=== PATIENT | male | born 1990 | race Caucasian/White ===

== ENCOUNTER 2018-07-30 15:23 | Emergency (ER) | payer OTHER ==
--- NOTE | 2018-07-30 15:37 | ER Report ---
History and Physical Time Seen By MD: 15:37 HPI/ROS CHIEF COMPLAINT: Right shoulder pain HISTORY OF PRESENT ILLNESS: This is a 28-year-old male who presents to the emergency department for right shoulder pain. 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 Patient has a mild deformity of the right shoulder, I am concerned about an A/C separation. No fevers, chills. No chest pain or shortness of breath. No C-spine tenderness. REVIEW OF SYSTEMS: Respiratory: No cough, no dyspnea. Cardiovascular: No chest pain, no palpitations. Gastrointestinal: No vomiting, no abdominal pain. Musculoskeletal: As above. Allergies: Coded Allergies: cinnamon (Verified Allergy, Severe, HIVES, 07/30/18) IN MOUTH Home Meds Active Scripts Hydrocodone Bit/Acetaminophen (HYDROCODON-ACETAMINOPHEN 5-325) 1 Each Tablet, 1 EACH PO Q4-6H PRN for PAIN, #8 TAB Prov:PABLO ENRIQUE CONTINUOUS IMPROVEMENT CONSULTANT- 07/30/18 Past Medical/Surgical History The patient has a past medical and surgical history of some teeth extraction, broken fingers. Reviewed Nurses Notes: Yes Constitutional Vital Sign - Last 24 Hours 07/30/18 07/30/18 07/30/18 07/30/18 15:29 15:37 15:53 16:00 Temp 98.7 Pulse 94 87 Resp 14 B/P (MAP) 124/76 (92) 124/76 120/73 (89) Pulse Ox 90 94 O2 Delivery Room Air Room Air 07/30/18 07/30/18 07/30/18 07/30/18 16:23 16:30 16:35 17:00 Pulse 88 90 B/P (MAP) 124/79 (94) 118/69 (85) Pulse Ox 94 88 O2 Delivery Room Air 07/30/18 07/30/18 17:05 17:25 Pulse 91 B/P (MAP) 123/78 (93) Pulse Ox 87 Physical Exam General Appearance: The patient is alert, has no immediate need for airway protection and no current signs of toxicity. Eyes: Pupils equal and round no injection. Respiratory: Chest is non tender, lungs are clear to auscultation. Cardiac: regular rate and rhythm. Gastrointestinal: Abdomen is soft and non tender, no masses, bowel sounds normal. Musculoskeletal: Neck: Neck is supple and non tender. Extremities mild deformity of the right shoulder along the acromioclavicular joint, no deformities of the clavicle, no pain to the humerus. No crepitus. Skin: No rashes or lesions. [ ] DIFFERENTIAL DIAGNOSIS: After history and physical exam differential diagnosis was considered for contusion, abrasion, fracture, dislocation, acromioclavicular separation. Medical Decision Making EKG/Imaging [facility] Patient: Bernardino Lizarraga : 1990 Visit/Account:[id number] Date of Sevice: 07/30/2018 SHOULDER MIN 2 VIEWS RIGHT HISTORY: fall, pain, deformity COMPARISON: None FINDINGS: Right shoulder: Grade 3 AC joint separation. Glenohumeral joint is normal. No acute fracture. IMPRESSION: 1. Grade 3 right AC joint separation. Report Dictated By: Jovi Curry MD at 07/30/2018 4:39 PM Report E-Signed By: Jovi Curry MD at 07/30/2018 4:41 PM WSN:[id number] ED Course/Re-evaluation ED Course The patient was admitted to room. A history and physical were obtained. Differential diagnoses were considered. An x-ray of the right shoulder showing a grade 3 acromioclavicular separation. I discussed this with the patient. He was given 1 hydrocodone, 800 mg of ibuprofen, placed in a sling. CMS intact after the application of the sling. Also encouraged the patient to follow-up with the orthopedist of his choice when he returns to [place]. Patient was given pain medications as well. Patient had no other questions or concerns at this time and was discharged home. Patient expressed understanding and was in agreement with this plan of care. Decision to Disposition Date: Jul 30, 2018 Decision to Disposition Time: 17:26 Depart Departure Latest Vital Signs Vital Signs Date Time Temp Pulse Resp B/P (MAP) Pulse Ox O2 Delivery O2 Flow Rate FiO2 07/30/18 17:25 123/78 (93) 1/26/19 17:05 91 87 07/30/18 16:23 Room Air 07/30/18 15:37 98.7 14 Impression: Primary Impression: AC separation, type 3 Condition: Improved Disposition: HOME OR SELF-CARE New Scripts Hydrocodone Bit/Acetaminophen (HYDROCODON-ACETAMINOPHEN 5-325) 1 Each Tablet 1 EACH PO Q4-6H PRN for PAIN, #8 TAB Prov: PABLO ENRIQUE 07/30/18 Patient Instructions: Acromioclavicular Separation (ED) Additional Instructions: Please keep the sling on until you follow up with Ortho. [place]. Take 600-800mg Ibuprofen as needed for pain. Take the norco for severe pain. drink plenty of water. Get plenty of rest. Return to the ED for any other concerns or worsening symptoms. Problem Qualifiers Primary Impression: AC separation, type 3 Encounter type: initial encounter Laterality: right Qualified Codes: S43.101A - Unspecified dislocation of right acromioclavicular joint, initial encounter PABLO ENRIQUE-GARRISON Jul 30, 2018 15:37
--- NOTE | 2018-07-30 16:45 | RADIOLOGY IMAGING REPORT ---
FACILITY: PATIENT NAME: Bernardino Lizarraga : 1990 MR: [id number] V: [id number] EXAM DATE: ORDERING PHYSICIAN: PABLO ENRIQUE TECHNOLOGIST: Location: [facility] [place] Patient: Bernardino Lizarraga : 1990 Visit/Account:[id number] Date of Sevice: 07/30/2018 SHOULDER MIN 2 VIEWS RIGHT HISTORY: fall, pain, deformity COMPARISON: None FINDINGS: Right shoulder: Grade 3 AC joint separation. Glenohumeral joint is normal. No acute fracture. IMPRESSION: 1. Grade 3 right AC joint separation. Report Dictated By: Jovi Curry MD at 07/30/2018 4:39 PM Report E-Signed By: Jovi Curry MD at 07/30/2018 4:41 PM WSN:[email or web address]
[2018-07-30 17:25] VITALS: BP 123/78
[2018-07-30] MEDS ORDERED: IBUPROFEN 800 MG TAB PO ONE (17:25)
[2018-07-30] MEDS ORDERED: APAP/HYDROCODONE 325/5 TAB PO ONE (17:25)
[2018-07-30] MEDS ORDERED: HYDR-385 PO (17:27)
== END 2018-07-30 17:38 | disposition home or self-care (01) ==
LOC: ER 15:55
DX: S43.101A Unspecified dislocation of right acromioclavicular joint, initial encounter (principal); W18.39XA Other fall on same level, initial encounter; Y93.23 Activity, snow (alpine) (downhill) skiing, snowboarding, sledding, tobogganing and snow tubing
CPT/HCPCS: 73030; 99283; A4565